=== PATIENT | male | born 1950 | race Caucasian/White ===

== ENCOUNTER 2016-05-22 22:21 | Observation (INO) | payer MEDICARE, BC ==
--- NOTE | 2016-05-22 23:04 | EDM.PDOC ---
ED HISTORY OF PRESENT ILLNESS - General Chief Complaint: Cardiovascular Problem Stated Complaint: SHORTNESS OF BREATH Time Seen by Provider: 05/22/16 22:59 Source: Reports: Patient, Family, RN notes reviewed History Limitations: Reports: No limitations - History of Present Illness INITIAL COMMENTS - FREE TEXT/NARRATIVE: 66-year-old gentleman presents emergency department a complaint of shortness of breath he states his shortness of breath is worse when he lays down he feels better when he sits up he did have a 16 pound weight gain postoperatively he has lost 8 pounds of that original 16. He denies any chest pain or chest discomfort no nausea or vomiting no diaphoresis. He states his shortness of breath has developed over the last 24 hours no fevers - Related Data Allergies/ADRs: Allergies Allergy/AdvReac Type Severity Reaction Status Date / Time No Known Allergies Allergy Verified 05/22/16 22:44 Home Meds: Home Meds Aspirin [Halfprin] 81 mg PO DAILY 05/06/16 [History] Acetaminophen 650 mg PO Q12HR PRN 05/22/16 [History] Amiodarone [Cordarone] 200 mg PO DAILY 05/22/16 [History] Clopidogrel [Plavix] 75 mg PO DAILY 05/22/16 [History] Docusate Sodium [Colace] 100 mg PO BID 05/22/16 [History] Metoprolol Tartrate [Lopressor] 25 mg PO BID 05/22/16 [History] Nitroglycerin [Nitrostat] 0.4 mg SL ASDIRECTED 05/22/16 [History] atorvaSTATin [Lipitor] 40 mg PO BEDTIME 05/22/16 [History] metFORMIN [Glucophage] 500 mg PO BIDMEALS 05/22/16 [History] oxyCODONE 1 - 2 tab PO Q4HR PRN 05/22/16 [History] Past Medical History Cardiovascular History: Reports: Bypass, CAD, High cholesterol, Other (see below ) Other Cardiovascular History: Failed stress test on 05/11/16 blockage Hematologic History: Reports: Anticoagulation therapy - Infectious Disease History Infectious Disease History: Reports: Chicken pox - Past Surgical History Cardiovascular Surgical History: Reports: Coronary artery bypass, Other (see below) Other Cardiovascular Surgeries/Procedures: vein removed from left leg Social & Family History - Tobacco Use Smoking Status *Q: Never Smoker Second Hand Smoke Exposure: No - Recreational Drug Use Recreational Drug Use: No ED ROS GENERAL - Review of Systems Review Of Systems: See Below Constitutional: Reports: no symptoms HEENT: Reports: No symptoms Respiratory: Reports: Shortness of Breath Cardiovascular: Reports: Dyspnea on exertion. Denies: Chest pain GI/Abdominal: Reports: No symptoms : Reports: no symptoms Musculoskeletal: Reports: no symptoms Skin: Reports: no symptoms Neurological: Reports: No Symptoms ED EXAM, GENERAL - Physical Exam Exam: See Below Free Text/Narrative:: General: Male, not in any distress, alert and oriented x3 HEENT: head is atraumatic normocephalic, eyes pupils equal round reactive to light, sclera clear no conjunctivitis appreciated. Ears tympanic membranes clear and casey landmarks and light reflex are present bilaterally canals are clear. Nose no septal deviation, nares are clear, no blood present. Mouth mucosa is moist and pink no erythema or exudate noted in soft palate, tongue is midline uvula is midline, dentition is intact. Neck: Supple no thyromegaly no tracheal deviation. Nodes: Cervical nodes subclavicular nodes nontender no palpable lymphadenopathy noted. Lungs: clear to auscultation bilaterally with symmetrical respirations, no adventitious noise appreciated. CV: Regular rate and rhythm S1 and S2 appreciated no murmurs rubs or gallops noted. Chest surgical wound is clean dry and intact Abdomen: Soft, nontender, no palpable masses or organomegaly appreciated, no distention no guarding bowel sounds are present, . Neuro: Cranial nerves II through XII grossly intact Skin: Warm and dry, intact Extremities: +1 pitting edema noted in the left leg, this is the leg where the veins were harvested, right leg demonstrates no edema Course - Vital Signs Last Recorded V/S: Last Vital Signs Temp 97.1 F 05/22/16 22:32 Pulse 71 05/22/16 22:32 Resp 19 05/22/16 22:32 BP 149/105 H 05/23/16 00:11 Pulse Ox 99 05/22/16 22:32 - Orders/Labs/Meds Orders: Active Orders 24 hr Category Date Time Status Cardiac Monitoring [RC] .As Directed Care 05/22/16 23:00 Active EKG Documentation Completion [RC] ASDIRECTED Care 05/22/16 23:00 Active Peripheral IV Care [RC] . DIRECTED Care 05/22/16 23:58 Active Chest 1V Frontal [CR] Stat Exams 05/22/16 23:00 Taken Sodium Chloride 0.9% [Saline Flush] Med 05/22/16 23:58 Active 10 ml FLUSH ASDIRECTED PRN Peripheral IV Insertion Adult [OM.PC] Urgent Oth 05/22/16 23:58 Ordered EKG 12 Lead [EK] Stat Ther 05/22/16 23:00 Ordered Medication Orders Sodium Chloride (Saline Flush) 10 ml FLUSH ASDIRECTED PRN PRN Reason: Keep Vein Open Labs: Laboratory Tests 05/22/16 05/22/16 05/22/16 Range/Units 23:00 23:00 23:00 WBC 5.4 (4.5-11.0) K/uL RBC 3.44 L (4.30-5.90) M/uL Hgb 10.4 L (12.0-15.0) g/dL Hct 31.0 L (40.0-54.0) % MCV 90 (80-98) fL MCH 30 (27-31) pg MCHC 34 (32-36) % Plt Count 191 (150-400) K/uL Neut % (Auto) 63 (36-66) % Lymph % (Auto) 16 L (24-44) % Citrus % (Auto) 20 H (2-6) % Eos % (Auto) 0 L (2-4) % Baso % (Auto) 0 (0-1) % D-Dimer, Quantitative 2540 H (0.0-400.0) ng/mL Sodium 138 L (140-148) mmol/L Potassium 4.3 (3.6-5.2) mmol/L Chloride 103 (100-108) mmol/L Carbon Dioxide 26 (21-32) mmol/L Anion Gap 13.3 (5.0-14.0) mmol/L BUN 16 (7-18) mg/dL Creatinine 1.3 (0.8-1.3) mg/dL Est Cr Clr Drug Dosing 52.83 mL/min Estimated GFR (MDRD) 55 L (>60) Glucose 156 H (74-106) mg/dL Calcium 8.3 L (8.5-10.1) mg/dL Total Bilirubin 0.5 (0.2-1.0) mg/dL AST 59 H (15-37) U/L ALT 140 H (12-78) U/L Alkaline Phosphatase 298 H (46-116) U/L Troponin I 0.340 H* (0.000-0.056) ng/mL Ern-D-Crmrywukpxv Pept 2247 H (5-125) pg/mL Total Protein 6.3 L (6.4-8.2) g/dL Albumin 3.1 L (3.4-5.0) g/dL Globulin 3.2 (2.3-3.5) g/dL Albumin/Globulin Ratio 1.0 L (1.2-2.2) Meds: Medications Generic Name Dose Route Start Last Admin Trade Name Freq PRN Reason Stop Dose Admin Sodium Chloride 10 ml 05/22/16 23:58 Saline Flush FLUSH ASDIRECTED PRN Keep Vein Open Discontinued Medications Generic Name Dose Route Start Last Admin Trade Name Freq PRN Reason Stop Dose Admin Furosemide 60 mg 05/22/16 23:58 05/23/16 00:11 Lasix IVPUSH 05/22/16 23:59 60 mg ONETIME ONE Administration Departure - Departure Time of Disposition: 00:13 Disposition: Admitted As Inpatient 67 Condition: good Clinical Impression: Congestive heart failure Qualifiers: Congestive heart failure type: unspecified congestive heart failure type Congestive heart failure chronicity: acute Qualified Code(s): I50.9 - Heart failure, unspecified Forms: ED Department Discharge - My Orders Last 24 Hours: My Active Orders 05/22/16 23:00 Cardiac Monitoring [RC] .As Directed EKG Documentation Completion [RC] ASDIRECTED Chest 1V Frontal [CR] Stat EKG 12 Lead [EK] Stat 05/22/16 23:58 Peripheral IV Care [RC] . DIRECTED Sodium Chloride 0.9% [Saline Flush] 10 ml FLUSH ASDIRECTED PRN Peripheral IV Insertion Adult [OM.PC] Urgent - Assessment/Plan Last 24 Hours: My Active Orders 05/22/16 23:00 Cardiac Monitoring [RC] .As Directed EKG Documentation Completion [RC] ASDIRECTED Chest 1V Frontal [CR] Stat EKG 12 Lead [EK] Stat 05/22/16 23:58 Peripheral IV Care [RC] . DIRECTED Sodium Chloride 0.9% [Saline Flush] 10 ml FLUSH ASDIRECTED PRN Peripheral IV Insertion Adult [OM.PC] Urgent Plan: Assessment Acuity = acute Site and laterality = new onset congestive heart failure complicated patient with recent coronary artery bypass grafting secondary coronary artery disease and diabetes mellitus type 2 Etiology = probable complication of surgery Manifestations = shortness of breath when lying supine Location of injury = home Lab values = hemoglobin low at 10.4 consistent normochromic anemia d-dimer elevated at 2540 probably related to recent surgery sodium low at 138 consistent hyponatremia AST elevated at 59 ALT elevated at 140 consistent elevated liver enzymes alkaline phosphatase elevated at 298 troponin elevated at 0.340 related to recent surgery BNP markedly elevated at 2247 consistent fluid overload type pattern albumin low at 2.1 consistent hypoalbuminemia chest x-ray does show fluid congestion and cardiomegaly, EKG demonstrates a sinus rhythm Q waves appreciated laterally Plan Called discussed case Dr. Dodw he agreed to come and evaluate the patient in the hospital Patient was in agreement with the plan all questions were answered, This note was dictated using [employer] voice recognition software please call with any questions.
[2016-05-22] MEDS ORDERED: Furosemide 40 MG/4 ML VIAL IVPUSH ONE (23:58)
[2016-05-22] MEDS ORDERED: Sodium Chloride 0.9% 10 ML Syringe FLUSH PRN (23:58)
[2016-05-23] MEDS ORDERED: Sodium Chloride 0.9% 10 ML Syringe FLUSH PRN (00:16)
[2016-05-23] MEDS ORDERED: Zolpidem 5 MG Tab PO PRN (00:16)
[2016-05-23] MEDS ORDERED: oxyCODONE 5 MG Tab PO PRN (00:19)
[2016-05-23] MEDS ORDERED: Acetaminophen 325 MG Tab PO PRN (00:19)
[2016-05-23] MEDS ORDERED: Nitroglycerin 0.4 MG Tab.SL SL PRN (00:30)
[2016-05-23 07:38] VITALS: BP 118/71
[2016-05-23] MEDS ORDERED: metFORMIN 500 MG Tab PO SCH (08:00)
[2016-05-23] MEDS ORDERED: Clopidogrel 75 MG Tab PO SCH (09:00)
[2016-05-23] MEDS ORDERED: Aspirin 81 MG Tab.EC PO SCH (09:00)
[2016-05-23] MEDS ORDERED: Docusate Sodium 100 MG Cap PO SCH (09:00)
[2016-05-23] MEDS ORDERED: Amiodarone 200 MG Tab PO SCH (09:00)
[2016-05-23] MEDS ORDERED: Metoprolol Tartrate 25 MG Tab PO SCH (09:00)
--- NOTE | 2016-05-23 09:10 | CR ---
Chest 1V Frontal INDICATION: Chest Pain FINDINGS: Sternotomy. Cardiac enlargement. Mild pulmonary venous hypertension. Tiny right and modera te left pleural effusions. Findings suggest CHF.
--- NOTE | 2016-05-23 15:49 | HP ---
HISTORY OF PRESENT ILLNESS: A 66-year-old who just last week had bypass surgery at [place], where he initially is from, just moved to the area within the last year. He sees Dr. Limon as a primary care physician at [facility]. He really did not have any symptoms, but through routine checking, they did a stress test which was found to be abnormal. On the day he was down at [facility] having bypass surgery, sounds like everything went well. He was just discharged about 6 days ago. He has had a hard time sleeping because of some incisional discomfort, but then yesterday started having some problems with shortness of breath, mainly orthopnea, when he will lay down on the side. He came into the emergency room for further evaluation. He was evaluated by the emergency physician. He was noted to have an elevated BNP and felt to be fluid overloaded. Apparently, he was about 15 pounds after surgery. He came into the emergency room, was evaluated, and was found to be in fluid overload. His was real nervous about his recent condition. I was asked by the patient for further evaluation and treatment. The patient denied any chest pain. He has had a little bit of swelling in his graft site leg on the left side, with just a little bit on the right side. He had no nausea, vomiting, or diaphoresis. PAST MEDICAL HISTORY: 1. Borderline diabetes. 2. Bypass surgery with coronary artery disease. 3. Hyperlipidemia. CURRENT MEDICATIONS: Aspirin 81 mg daily, acetaminophen p.r.n., amiodarone 200 mg daily, Plavix 75 mg daily, Colace 100 mg b.i.d., metoprolol 25 mg b.i.d., nitroglycerin, atorvastatin 40 mg daily, metformin 500 mg b.i.d., oxycodone p.r.n. for pain. ALLERGIES: NO KNOWN DRUG ALLERGIES. FAMILY HISTORY: Mother and brother with coronary artery disease. SOCIAL HISTORY: He has never smoked. REVIEW OF SYSTEMS: Denies headaches, vision changes, or upper respiratory symptoms. No chest pain, just a little bit of incisional discomfort and shortness of breath with orthopnea. Little bit of swelling in his legs. No abdominal pain. No nausea, vomiting, diarrhea, or constipation. No urinary problems reported. No skin problems. No neurologic complaints reported. PHYSICAL EXAMINATION: VITAL SIGNS: Weight 84.3 kg, temp 36.6, pulse 65, blood pressure 130/78, respiratory rate 20, O2 saturation 98% on room air. PHARYNX: Clear. NECK: Supple. No obvious thyromegaly, JVD, or carotid bruits. LUNGS: Clear. HEART: Regular without murmurs. CHEST: His chest incision looks good with no redness or drainage. There is some mild discomfort. ABDOMEN: Soft and nontender. No mass or organomegaly palpated. EXTREMITIES: He does have significant edema bilaterally with just minimal on the right side, little bit more on the left. No pain in the calves. SKIN: Negative. NEURO: Cranial nerves 2 through 12 appear grossly intact. LABORATORY DATA: White count 5.4, hemoglobin 10.4, platelets 191,000. D-dimer was elevated at 2540. BNP was 2247. Troponin 0.340. Sodium 138, potassium 4.3, chloride 103, BUN 16, creatinine 1.3, and glucose 156. Liver functions; AST was elevated at 59, ALT elevated at 140. Chest x-ray, there is small amount of fluid, but await Radiology interpretation. ASSESSMENT: 1. Coronary artery disease with recent bypass surgery with fluid overload. We will admit him for IV Lasix, which he received in the ER. We will see how he does overnight and if he is feeling better, probably home tomorrow. We will admit him under observation. Anticipate less than 2 midnight stays. 2. Prediabetes, on metformin. Marco Dowd MD /[id number]
[2016-05-23] MEDS ORDERED: atorvaSTATin 20 MG Tab PO SCH (21:00)
--- NOTE | 2016-07-26 02:43 | DISCH ---
DISCHARGE DIAGNOSES: 1. Coronary artery disease with recent bypass surgery. 2. Fluid overload. PROCEDURES DURING HOSPITALIZATION: None. REASON FOR HOSPITALIZATION: A 66-year-old had bypass surgery at [facility] where he initially was from about 6 days prior to admission. He was doing well other than some incisional pain. He started having trouble with shortness of breath, orthopnea, especially when he would lay down on his side. He came into the emergency room for further evaluation. He was evaluated by emergency room physician and was noted to have an elevated BNP, fluid overload, apparently was about 15 pounds up from the surgery. He came into the emergency room and evaluated by emergency room physician, felt to be fluid overloaded and I was asked to admit the patient for further evaluation and treatment. Significant findings; initial white count was 5.4, remained stable during hospitalization, hemoglobin 10.4, and platelets 191,000. D-dimer was 2540. Sodium 138, potassium 4.3, and chloride 103. Liver functions were elevated; AST 59, ALT 140, and alkaline phosphatase 298. Troponin was 0.340. BNP was 2247. His potassium remained stable during his hospitalization, 4.0 on date of discharge. Chest x-ray showed mild pulmonary venous hypertension, tiny right and moderate left pleural effusions. HOSPITAL COURSE: The patient was admitted, was given IV Lasix, and diuresed well, and was feeling well by the next day. He did desire to go home. DISCHARGE DISPOSITION: Discharged home. ACTIVITY: Resume previous activity level. DISCHARGE MEDICATIONS: Aspirin 81 mg daily, acetaminophen p.r.n., amiodarone 200 mg daily, Plavix 75 mg daily, Colace 100 mg b.i.d., metoprolol 25 mg b.i.d., nitroglycerin p.r.n., atorvastatin 40 mg daily, metformin 500 mg b.i.d., oxycodone p.r.n. for pain, and furosemide 20 mg daily for 7 days. FOLLOWUP: Followup appointment with Dr. Limon in a week for further evaluation.
== END 2016-05-23 09:13 | disposition home or self-care (01) ==
LOC: JP.ED 22:21 → JP.MS 05-23 00:16
PROVIDERS: ADMIT Family Medicine; ATTEND Family Medicine
DX: I50.9 Heart failure, unspecified (principal); I25.810 Atherosclerosis of coronary artery bypass graft(s) without angina pectoris; E78.5 Hyperlipidemia, unspecified; Z79.82 Long term (current) use of aspirin; Z79.899 Other long term (current) drug therapy; Z79.84 Long term (current) use of oral hypoglycemic drugs; R73.03 Prediabetes
CPT/HCPCS: 36415; 71010; 80048; 80053; 82962; 83880; 84484; 85025; 85379; 93005; 93010; 96374; 99285; A9270; G0378; J1940; J7050